=== PATIENT | female | born 1950 | race Caucasian/White ===

== ENCOUNTER 2017-01-14 13:35 | Emergency (ER) | payer OTHER ==
[~2017-01-14] VITALS: Ht 154.9 cm; Wt 54.9 kg
[2017-01-14] MEDS ORDERED: TIROSINT100 MCG PO (13:43)
== END 2017-01-14 15:39 | disposition home or self-care (01) ==
LOC: ED 13:35
DX: S09.90XA Unspecified injury of head, initial encounter (principal); S20.419A Abrasion of unspecified back wall of thorax, initial encounter; E03.9 Hypothyroidism, unspecified; Z90.49 Acquired absence of other specified parts of digestive tract; Z79.899 Other long term (current) drug therapy; W17.89XA Other fall from one level to another, initial encounter
CPT/HCPCS: 70450; 99284